=== PATIENT | female | born 1980 | race Hispanic/Latino ===

== ENCOUNTER 2018-06-08 08:43 | Day surgery (SDC) | payer OTHER ==
[2018-06-08 10:21] VITALS: BMI 25.2
[2018-06-08 10:43] VITALS: RESP 18
[2018-06-08 11:16] LABS: BASO % 0.7 % (0.0-2.0); EOS # 0.3 K/uL (0.0-0.7); EOS % 4.4 % (0.0-4.0); HEMOGLOBIN 13.2 g/dL (12.0-16.0); LYMPH # 1.6 K/uL (1.0-4.3); LYMPH % 24.8 % (20.0-40.0); MEAN CORPUSCULAR HEMOGLOBIN 29.6 pg (27.0-31.0); MEAN PLATELET VOLUME 8.5 fl (7.2-11.7); MONO # 0.3 K/uL (0.0-0.8); MONO % 5.2 % (0.0-10.0); NEUT # 4.2 K/uL (1.8-7.0); NEUT % 64.9 % (50.0-75.0); RBC 4.46 Mil/uL (3.80-5.20); RED CELL DISTRIBUTION WIDTH 14.5 % (11.5-14.5); WHITE BLOOD COUNT 6.4 K/uL (4.8-10.8)
[2018-06-08] MEDS ORDERED: Lactated Ringer's 1,000 ML IV ONE (12:00)
[2018-06-08] MEDS ORDERED: Propofol 10 mg/ml Inj (20 ML) ONE (12:27)
[2018-06-08] MEDS ORDERED: Midazolam 2 MG/2 ML VIAL ONE (12:27)
[2018-06-08] MEDS ORDERED: Lidocaine 2% Jelly (5 ml) TOP ONE (12:28)
[2018-06-08] MEDS ORDERED: Lidocaine 1% 5ml Abboject IV ONE (12:28)
[2018-06-08] MEDS ORDERED: Succinylcholine 200 mg/10 ml Inj IV ONE (12:28)
[2018-06-08] MEDS ORDERED: Lidocaine 4% (Laryng-O-Jet) Kit MM ONE (12:34)
[2018-06-08] MEDS ORDERED: Oxytocin 10 Units/ml Inj ONE (12:36)
[2018-06-08] MEDS ORDERED: ceFAZolin IV 2 gm in Dextrose 0 GM/0 ML BAG IVPB ONE (12:38)
[2018-06-08] MEDS ORDERED: Dexamethasone 4 mg/1 ml IVP PRN (13:43)
[2018-06-08] MEDS ORDERED: HYDROmorphone 0.5 mg/0.5 ml ISec IVP PRN (13:43)
[2018-06-08] MEDS ORDERED: Lactated Ringer's 1,000 ML IV SCH (13:45)
[2018-06-08 15:20] VITALS: O2SAT 100
[2018-06-08 16:31] VITALS: BP 120/76; PULSE 58; TEMP 97.8
--- NOTE | 2018-06-09 06:52 | OP ---
PROCEDURE DATE: 06/08/2018 PREOPERATIVE DIAGNOSIS: Missed , blighted ovum. POSTOPERATIVE DIAGNOSIS: Missed , blighted ovum. OPERATION PERFORMED: Suction dilation and curettage. SURGEON: Ting Be MD. ANESTHESIA: General. ANESTHESIA ADMINISTERED BY: Dr. Hopper. ESTIMATED BLOOD LOSS: Minimal. INDICATION: The patient straight catheterized prior to starting the procedure, the patient received 500 mL of D5 LR intraoperatively. There were no complications. OPERATIVE FINDINGS: 10 week size uterus, normal external female genitalia. Urethra normal. Cervix approximately 1 cm dilated. Scant blood noted. DESCRIPTION OF PROCEDURE: After informed consent was obtained, the patient was taken to the operating room where she was given general anesthesia. She was then prepped and draped in the normal sterile fashion. A weighted speculum was inserted in the vagina. Cervix was visualized, grasped with a single-tooth tenaculum. The cervix was then gently dilated. A 9 mm curved suction curette was then used to evacuate the contents of the uterus. The suction device was rotated in a clockwise fashion. The sharp curettage was then performed to remove any remaining debris. The suction device was reintroduced and rotated in clockwise fashion. All instruments were then removed from the vagina. Hemostasis was noted. The patient was then awakened from general anesthesia and taken to recovery room in awake and stable condition. All sponge, lap, needle and instruments were correct x2. The patient tolerated the procedure well. Ting Be MD
== END 2018-06-08 16:25 | disposition home or self-care (01) ==
LOC: H.OPSURG 08:43
PROVIDERS: ATTEND Obstetrics & Gynecology Gynecology
DX: O02.1 Missed abortion (principal); F32.9 Major depressive disorder, single episode, unspecified; F41.8 Other specified anxiety disorders; E03.9 Hypothyroidism, unspecified
CPT/HCPCS: 36415; 59820; 85025; 86850; 86900; 88305; J0330; J2210; J2250; J2704; J3010; J7030; J7120